=== PATIENT | female | born 1945 | race African-American/Black ===

== ENCOUNTER → 2016-08-23 | Outpatient (CLI) | payer MEDICARE, MEDICAID ==
[~2016-08-23] MED LIST: ACET325T51 PO; ASPI81TA2 PO; ATOR10TA64 PO; AZIT500T2 PO; BISA10SU8 RECTALLY; FURO-153 PO; INSU100I21 SQ; LACT-81 PO; LIDO700A3 TOP; LINA5TAB PO; LISI-625 PO; METH5TAB2 PO; OXYB15TA PO; POLY17PO6 PO; PREG50CA PO; PROM25TA7 PO; PROP10DR2 BOTH EYES; QUET150T3 PO; SALINE FLUSH 10ml SYRINGE IVF ONE; SERT100T PO; TRAZ-173 PO
== END ==
LOC: NWCC 08:59
PROVIDERS: ATTEND Internal Medicine
DX: L89.313 Pressure ulcer of right buttock, stage 3 (principal); L89.623 Pressure ulcer of left heel, stage 3; M62.81 Muscle weakness (generalized)
CPT/HCPCS: 11042; A6209; A6210